=== PATIENT | female | born 2000 | race Two or more races ===

== ENCOUNTER → 2019-03-23 | Outpatient (CLI) | payer OTHER ==
--- NOTE | 2019-03-23 23:49 | MR ---
EXAMINATION TYPE: MR brain wo/w con DATE OF EXAM: 03/23/2019 COMPARISON: None HISTORY: No prior, muscle spasms, R/O MS TECHNIQUE: Multiplanar, multisequence images of the brain and brainstem is performed without and with IV contras t, utilizing 6.5ml mL intravenous Gadavist . FINDINGS: Ventricles and sulci appear normal. There is no mass effect nor midline shift. There is no sign of in tracranial hemorrhage. There is no evidence of cerebral edema. There is a 5 mm focus of increased sig nal in the cho-white matter junction left posterior frontal lobe. There are 2 or 3 tiny 2 mm white matter high signal foci in the right posterior frontal lobe. The brainstem is intact. There is 1 cm mucous retention cyst right and left maxillary sinus. Corpus c allosum appears normal. Sella turcica appears normal. There is no pathologic enhancement. There is no rmal contrast opacification of the venous sinuses. IMPRESSION: There is a single white matter high signal focus left posterior frontal lobe of uncertain significance. There are tiny 2 to 3 mm foci of similar increased signal right posterior frontal lobe white matter. Otherwise negative MR scan of the brain. Small mucus retention cyst anterior right max illary sinus. Small mucous retention cyst anterior left maxillary sinus.
== END | disposition home or self-care (01) ==
LOC: RADMRIMAIN 15:46
PROVIDERS: ATTEND Family Medicine
DX: G35 Multiple sclerosis (principal); H53.9 Unspecified visual disturbance
CPT/HCPCS: 70553; A9585

== ENCOUNTER 2019-05-29 16:57 | Emergency (ER) | payer OTHER ==
[2019-05-29 17:04] VITALS: BP 103/55; PULSE 61; RESP 18; TEMP 97.8
--- NOTE | 2019-05-29 17:44 | ED ---
Extremity Problem HPI - General Chief complaint: Extremity Problem,Nontraumatic Stated complaint: Finger Swelling/Hardness Time Seen by Provider: 05/29/19 17:16 Source: patient Mode of arrival: ambulatory Limitations: no limitations - History of Present Illness Initial comments: 18-year-old female witha past medical history presents emergency department for evaluation of slight redness of the index and middle finger. Patient states that she works at [employer] worse while she states her stroke for close today she noticed redness to the base of the index finger and on the side of the middle finger of the left hand. Patient states that she had never seen this before and was concerned and presented [facility] for evaluation. Patient states is slightly te nder. Patient denies any blistering denies any limitations in range of motion. Patient denies any decrease in strength. Patient denies any direct trauma or falls. Remaining systems negative. Upon arrival patient appears well no signs of acute distress. - Related Data Previous Rx's Medication Instructions Recorded Cephalexin [Keflex] 500 mg PO Q8HR 5 Days #15 cap 05/29/19 Allergies Allergy/AdvReac Type Severity Reaction Status Date / Time No Known Allergies Allergy Verified 05/29/19 17:04 Review of Systems ROS Statement: Those systems with pertinent positive or pertinent negative responses have been documented in the HPI. ROS Other: All systems not noted in ROS Statement are negative. Past Medical History Additional Past Medical History / Comment(s): muscle spasms undiagnosed, seeing neurologist right now History of Any Multi-Drug Resistant Organisms: None Reported Past Surgical History: No Surgical Hx Reported Past Psychological History: ADD/ADHD, Anxiety Smoking Status: Never smoker Past Alcohol Use History: None Reported Past Drug Use History: Marijuana General Exam - General Exam Comments Initial Comments: General: The patient is awake and alert, in no distress, and does not appear acutely ill. Eye: Pupils are equal, round and reactive to light, extra-ocular movements are intact. No nystagmus. There is normal conjunctiva bilaterally. No signs of icterus. Cardiovascular: There is a regular rate and rhythm. No murmur, rub or gallop is appreciated. Respiratory: Lungs are clear to auscultation, respirations are non-labored, breath sounds are equal. No wheezes, stridor, rales, or rhonchi. Gastrointestinal: Soft, non-distended, non-tender abdomen without masses or organomegaly noted. There is no rebound or guarding present. Musculoskeletal: Normal ROM, no tenderness. Strength 5/5. Sensation intact. Radial pulses equal bilaterally 2+. Neurological: A&O x 3. CN II-XII intact grossly, There are no obvious motor or sensory deficits. Coordination appears grossly intact. Speech is normal. Skin: Skin is warm and dry and no rashes. Slight redness noted at the base of the left index finger and slightly on the inner aspect of the middle finger. There is no diffuse tenderness or swelling. No fusiform swelling. No flexed positioning. Patient is able to fully range without pain out of proportion or limitations. Strength intact at the MCP DIP and PIP joints. All 5 digits of the hand. Patient has no evidence of abscess. No evidence of breaks the skin. Psychiatric: Cooperative, appropriate mood & affect, normal judgment. Limitations: no limitations Course Vital Signs 05/29/19 17:01 Temperature 97.8 F Pulse Rate 61 Respiratory 18 Rate Blood Pressure 103/55 O2 Sat by Pulse 100 Oximetry Medical Decision Making - Medical Decision Making 18-year-old female presented to ER for chief complaint of finger redness x few hours. Patient wears gloves at work. Patient denies a specific injuries. There is no obvious breaks in skin there is no evidence of flexor [id number] kanavel signs. Patient may have a developing possible cellulitis however still feel this is unlikely. Most likely feel patient has a local reaction. Patient will be started on Keflex. Return parameters including signs of infection were discussed in length the patient verbalizes understanding. Patient was instructed to rest the area. Remaining review of systems was negative. Patient appeared well discussed case by attending provider Dr. isaacs who is agreeable with care plan and discharge. Disposition Clinical Impression: Finger pain, left, Finger swelling Disposition: HOME SELF-CARE Condition: Good Instructions (If sedation given, give patient instructions): Cellulitis (DC), R.I.C.E. Treatment (ED) Additional Instructions: Please use medication as discussed. Please follow-up with family doctor in the next 2 days. If swelling of the digit increases, redness increases, or inability to range at the finger. Please return to emergency room if the symptoms increase or worsen or for any other concerns. Prescriptions: Cephalexin [Keflex] 500 mg PO Q8HR 5 Days #15 cap Is patient prescribed a controlled substance at d/c from ED?: No Referrals: Dylan Acuña MD [Primary Care Provider] - 1-2 days Time of Disposition: 17:42
== END 2019-05-29 17:50 | disposition home or self-care (01) ==
LOC: EC 16:57
DX: M79.89 Other specified soft tissue disorders (principal); M79.645 Pain in left finger(s)
CPT/HCPCS: 99283

== ENCOUNTER → 2019-11-11 | Outpatient (CLI) | payer BC, OTHER ==
--- NOTE | 2019-11-11 12:30 | USB ---
Reason for exam: clinical finding. History: Patient is nulliparous. Took hormonal contraceptives for 5 years. Indicated problem(s): palpable abnormality and pain in the right breast. Physical Findings: Nurse Summary: 0.3cm nodule in the right breast at 7-8 o'clock (nurse TM). US Breast Limited RT Right limited breast ultrasound including focal area of concern, retroareolar and axilla demonstrates no cystic or solid lesion seen, ductal ectasia. Extremely dense fibroglandular tissue seen throughout. These results were verbally communicated with the patient and result sheet given to the patient on 11/11/19. ASSESSMENT: Negative, BI-RAD 1 RECOMMENDATION: Routine screening mammogram of both breasts at age 38. (or sooner if clinically indicated) Manage patient on a clinical basis.
== END | disposition home or self-care (01) ==
LOC: RADMAMWWP 10:47
PROVIDERS: ATTEND Family Medicine
DX: N63.10 Unspecified lump in the right breast, unspecified quadrant (principal)

== ENCOUNTER → 2021-12-22 | Outpatient (CLI) | payer OTHER ==
--- NOTE | 2021-12-22 14:34 | US ---
EXAMINATION TYPE: US pelvis complete transvag DATE OF EXAM: 12/22/2021 COMPARISON: NONE CLINICAL HISTORY: N93.9 ABNORMAL UTERINE BLEEDING. TECHNIQUE: Transvaginal (TV) and Transabdominal (TA) . Transabdominal sonographic images of the pel vis were acquired. Transvaginal sonographic images were medically necessary to better assess the fol lowing anatomy: ovaries Date of LMP: Patient has been spotting for 2 months EXAM MEASUREMENTS: Uterus: 7.8 x 4.0 x 4.6 cm Endometrial Stripe: 0.3 cm Right Ovary: obscured by extensive peristalsing bowel Left Ovary: obscured by extensive peristalsing bowel 1. Uterus: Anteverted wnl 2. Endometrium: wnl 3. Right Ovary: obscured by extensive peristalsing bowel 4. Left Ovary: obscured by extensive peristalsing bowel 5. Bilateral Adnexa: prominent vasculature 6. Posterior cul-de-sac: minimal amount of free fluid Heterogeneous anteverted uterus. Endometrial stripe is thin. Trace free fluid pelvic cul-de-sac is no nspecific. Neither ovary clearly identified. Scanning the adnexa shows prominent vessels raising concern for pel sangita congestion syndrome. Correlate clinically. IMPRESSION: As above.
== END | disposition home or self-care (01) ==
LOC: RADUSWWP 13:29
PROVIDERS: ATTEND Family Medicine
DX: N93.9 Abnormal uterine and vaginal bleeding, unspecified (principal)
CPT/HCPCS: 76830; 76856

== ENCOUNTER → 2022-06-18 | Outpatient (CLI) | payer OTHER ==
--- NOTE | 2022-06-18 15:47 | US ---
EXAMINATION TYPE: Transabdominal DATE OF EXAM: 06/18/2022 3:32 PM COMPARISON: NONE CLINICAL HISTORY: Z36.89 ENCOUNTER FOR OTHER SPECIFIED SCR. Confirm dates EXAM PERFORMED: Transvaginal (TV) and Transabdominal (TA) EXAM MEASUREMENTS: GESTATIONAL AGE / DATING Physician Established: (7 weeks/4 days) EDC: 01/31/2023 Dates by LMP: (7 weeks/4 days) EDC: 01/31/2023 Dates by First Scan: No previous this is first scan Dates by Current Scan for: ( 6 weeks/0 days) EDC: 02/11/2023 MATERNAL ANATOMY Uterus: 8.0 x 4.4 x 6.0 cm Right Ovary: 3.4 x 2.1 x 2.8 cm Left Ovary: 2.5 x 1.7 x 2.4 cm Post CDS / Adnexa: wnl Presence of free fluid: Scant amount posterior cul de sac Presence of corpus luteal cyst: Right Ovary= 2.0 x 1.6 x 1.7 cm Presence of subchorionic bleed: No GESTATION / SURVEY CRL: 0.3 cm (6 weeks/0 days) MSD: wnl Yolk Sac (normal less than 6mm): 2mm Heart Rate: 70 bpm Rhythm: [place] IUP: Viable IUP Date of LMP: 04/26/2022 IMPRESSION: 1. Single viable intrauterine with ultrasound age of 6 weeks and 0 days by current ultraso und scan. This is discordant with dates by last menstrual period. 2. heart rate of 70 beats per minute suggestive of bradycardia. Attention on follow-up i sheryl.
== END | disposition home or self-care (01) ==
LOC: RADUSWWP 15:00
PROVIDERS: ATTEND Obstetrics & Gynecology
DX: Z36.89 Encounter for other specified antenatal screening (principal); Z3A.01 Less than 8 weeks gestation of pregnancy
CPT/HCPCS: 76801; 76817

== ENCOUNTER → 2022-06-25 | Outpatient (CLI) | payer OTHER ==
--- NOTE | 2022-06-25 19:07 | US ---
EXAMINATION TYPE: Ultrasound OB <= 14 weeks transvaginal DATE OF EXAM: 06/25/2022 2:18 PM COMPARISON: NONE CLINICAL HISTORY: 21-year-old female O36.8390 MATERN CARE FOR ABNLT FETL HRT RATE. EXAM PERFORMED: Transvaginal (TV) and Transabdominal (TA) FINDINGS: EXAM MEASUREMENTS: GESTATIONAL AGE / DATING Physician Established: (8 weeks/5 days) EDC: 623 Dates by LMP: (8 weeks/5 days) EDC: 01-31-23 Dates by First Scan: (7 weeks/0 days) EDC: 02-11-23 Dates by Current Scan for: Unable to date by today's study MATERNAL ANATOMY Uterus: 8.5 x 4.7 x 5.4cm Right Ovary: 2.4 x 1.6 x 1.8cm Left Ovary: 2.4 x 1.2 x 2.1cm Post CDS / Adnexa: wnl Presence of free fluid: no GESTATION / SURVEY CRL: unable to measure by today's ultrasound MSD: 2.5 cm (7 weeks/1 days) Yolk Sac (normal less than 6mm): 2mm Heart Rate: no heart tones bpm Rhythm: Normal IUP: Concerning for Demise Date of LMP: 04-26-22 Beta HcG (if available): Not available at this time Concerning for demise. Preliminary given to Mary Ann at Dr. Quiles's office. IMPRESSION: 1. Gestational sac dating the at 7 weeks 1 day. This is discordant by physician established dates (8 weeks 5 days). 2. No heart rate. The pole appears morphologically disorganized. Findings concerning for demise. Confirm with serial beta hCG follow-up.
== END | disposition home or self-care (01) ==
LOC: RADUSWWP 13:49
PROVIDERS: ATTEND Obstetrics & Gynecology
DX: O36.8310 Maternal care for abnormalities of the fetal heart rate or rhythm, first trimester, not applicable or unspecified (principal); Z3A.01 Less than 8 weeks gestation of pregnancy
CPT/HCPCS: 76801; 76817

== ENCOUNTER → 2022-07-11 | Outpatient (CLI) | payer OTHER ==
[2022-07-11 18:05] LABS: Basophils # (A) 0.05 X 10*3/uL (0.00-0.10); Basophils % (A) 0.4 %; Eosinophils # (A) 0.14 X 10*3/uL (0.04-0.35); Eosinophils % (A) 1.2 %; HCT 38.6 % (37.2-46.3); HGB 12.6 g/dL (12.0-15.0); Immature Grans, Automated 0.3 %; Lymphocytes # (A) 3.13 X 10*3/uL (0.90-5.00); Lymphocytes % (A) 27.5 %; MCH 29.9 pg (27.0-32.0); MCHC 32.6 g/dL (32.0-37.0); MCV 91.5 fL (80.0-97.0); Mean Platelet Volume 9.9 fL (9.5-12.2); Monocytes # (A) 0.61 X 10*3/uL (0.20-1.00); Monocytes % (A) 5.4 %; NRBC Per 100 WBC 0 /100 WBCS (0.0-0.0); Neutrophils # (A) 7.44 X 10*3/uL (1.80-7.70); Neutrophils % (A) 65.2 %; Platelet Count 360 X 10*3/uL (140-440); RBC 4.22 X 10*6/uL (4.10-5.20); RDW 13.4 % (11.5-14.5)
== END | disposition home or self-care (01) ==
LOC: LABPAT 12:08
PROVIDERS: ATTEND Obstetrics & Gynecology
DX: Z01.812 Encounter for preprocedural laboratory examination (principal)
CPT/HCPCS: 85025

== ENCOUNTER 2022-07-12 10:39 | Day surgery (SDC) | payer OTHER ==
[2022-07-11 09:47] VITALS: BMI 25.4
--- NOTE | 2022-07-12 08:47 | P.HPOB ---
History of Present Illness H&P Date: 07/12/22 Chief Complaint: missed 21 year old presents at 7 weeks for suction D&C. She had US showing absent heart tones and her bhcg has started to fall. She has had no bleeding. Review of Systems All systems: negative Constitutional: Denies chills, Denies fever Eyes: denies blurred vision, denies pain Ears, nose, mouth and throat: Denies headache, Denies sore throat Cardiovascular: Denies chest pain, Denies shortness of breath Respiratory: Denies cough Gastrointestinal: Denies abdominal pain, Denies diarrhea, Denies nausea, Denies vomiting Genitourinary: Denies dysuria, Denies hematuria Musculoskeletal: Denies myalgias Integumentary: Denies pruritus, Denies rash Neurological: Denies numbness, Denies weakness Psychiatric: Denies anxiety, Denies depression Endocrine: Denies fatigue, Denies weight change Past Medical History Past Medical History: No Reported History Additional Past Medical History / Comment(s): muscle spasms undiagnosed, seeing neurologist right now History of Any Multi-Drug Resistant Organisms: None Reported Past Surgical History: No Surgical Hx Reported Additional Past Surgical History / Comment(s): colonoscopy/EGD Past Anesthesia/Blood Transfusion Reactions: No Reported Reaction Past Psychological History: ADD/ADHD Smoking Status: Never smoker Past Alcohol Use History: None Reported Past Drug Use History: Marijuana - Past Family History Mother Family Medical History: No Reported History Medications and Allergies Home Medications Medication Instructions Recorded Confirmed Type No Known Home Medications 07/11/22 07/11/22 History Allergies Allergy/AdvReac Type Severity Reaction Status Date / Time No Known Allergies Allergy Verified 07/11/22 09:41 Exam Osteopathic Statement: *. No significant issues noted on an osteopathic structural exam other than those noted in the History and Physical/Consult. HEart: RRR Lungs: CTAB Abdomen: soft, nontender Extremeties: neg faustino's Assessment and Plan (1) Missed Status: Acute Code(s): O02.1 - MISSED SNOMED Code(s): 87144641 Plan: 1. suction D&C
[~2022-07-12 10:39] MED LIST: DEXAMETHASONE SOD PHOSPHATE 4 MG/ML 1 ML VIAL IV ONE; HYDROmorphone 0.5 MG/0.5 ML SYRINGE IVP PRN; LACTATED RINGERS 1,000 ML IV SCH; ONDANSETRON 4 MG/2 ML VIAL IVP ONE; Pre Op ABX Message 1 EACH MISC MISCELLANE ONE
[2022-07-12] MEDS ORDERED: LACTATED RINGERS 1,000 ML IV ONE (11:01)
[2022-07-12] MEDS ORDERED: PROPOFOL 10 MG/ML 20 ML VIAL IV ONE (12:05)
[2022-07-12] MEDS ORDERED: MIDAZOLAM 2 MG/2 ML VIAL ONE (12:05)
[2022-07-12] MEDS ORDERED: fentaNYL (PF) 50 MCG/ML 2 ML AMP ONE (12:05)
[2022-07-12] MEDS ORDERED: LIDOCAINE 2% INJ 20 MG/ML (2 ML VIAL) ONE (12:05)
[2022-07-12 12:46] VITALS: TEMP 97.4
--- NOTE | 2022-07-12 12:48 | P.OP ---
Date of Procedure: 07/12/22 Preoperative Diagnosis: 1. missed Postoperative Diagnosis: 1.missed Procedure(s) Performed: Suction D&C Anesthesia: MAC Surgeon: Sury Quiles Estimated Blood Loss (ml): 100 IV fluids (ml): 300 Urine output (ml): 30 Pathology: other (Products of conception) Condition: stable Disposition: PACU Description of Procedure: Patient taken the operating room where general anesthesia was obtained without difficulty. She is prepped and draped in normal sterile fashion dorsal lithotomy position, legs placed in the candycane stirrups. Bladder drained of all urine. Weighted speculum place in vagina the anterior lip of the cervix was grasped with single-tooth tenaculum. The cervix was dilated to #10 Hegar dilator. The #10 curved suction curet was introduced into the uterus and passed several times to remove all tissue and blood. Sharp curet was gently used to ensure all tissue had been removed. Suction curet was passed a few more times. Hemostasis was achieved. Patient tolerated procedure well, sponge and instrument counts correct 2. She was taken to recovery in stable condition.
[2022-07-12] MEDS ORDERED: KETOROLAC 15 MG/ML 1 ML VIAL IVP ONE (12:52)
[2022-07-12 13:58] VITALS: RESP 18
[2022-07-12 14:28] VITALS: BP 101/60; PULSE 61
== END 2022-07-12 14:38 | disposition home or self-care (01) ==
LOC: OR 10:39
PROVIDERS: ATTEND Obstetrics & Gynecology
DX: O02.1 Missed abortion (principal); M62.838 Other muscle spasm; F90.9 Attention-deficit hyperactivity disorder, unspecified type; F12.90 Cannabis use, unspecified, uncomplicated
CPT/HCPCS: 86900; 86901; 88305; 86850; 59820; J2250; J1100; J2405; J3010; J1885; J2704; J1170; J2001

== ENCOUNTER 2022-08-26 08:36 | Emergency (ER) | payer OTHER ==
[2022-08-26] MEDS ORDERED: DIPH,PERTUS(ACELL)TETVAC-LF 0.5 ML VIAL IM ONE (08:53)
[2022-08-26] MEDS ORDERED: HYDROmorphone 0.5 MG/0.5 ML SYRINGE IVP STA (08:53)
[2022-08-26] MEDS ORDERED: KETOROLAC 15 MG/ML 1 ML VIAL IVP STA (08:53)
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
[2022-08-26 09:21] LABS: Basophils # (A) 0.1 k/uL (0-0.2); Basophils % (A) 1 %; Eosinophils # (A) 0.1 k/uL (0-0.7); Eosinophils % (A) 1 %; HCT 41.8 % (34.0-46.0); HGB 14.3 gm/dL (11.4-16.0); Lymphocytes # (A) 3.4 k/uL (1.0-4.8); Lymphocytes % (A) 31 %; MCH 31.6 pg (25.0-35.0); MCHC 34.3 g/dL (31.0-37.0); MCV 92.3 fL (80.0-100.0); Mean Platelet Volume 8.4; Monocytes # (A) 0.5 k/uL (0-1.0); Monocytes % (A) 5 %; Neutrophils # (A) 6.7 k/uL (1.3-7.7); Neutrophils % (A) 61 %; Platelet Count 348 k/uL (150-450); RBC 4.53 m/uL (3.80-5.40); RDW 13.1 % (11.5-15.5)
[2022-08-26 09:29] LABS: INR 1.1 (<1.2); Partial Thromboplastin Time 25.7 sec (22.0-30.0); Prothrombin Time 11.3 sec (9.0-12.0)
[2022-08-26 09:31] LABS: ALT 20 U/L (4-34); AST 25 U/L (14-36); African American GFR (CKD) >90 (>60 ml/min/1.73 sqM); Albumin 4.8 g/dL (3.5-5.0); Alkaline Phosphatase 77 U/L (38-126); Anion Gap 16 mmol/L; Blood Urea Nitrogen 6 mg/dL (7-17); Calcium 8.9 mg/dL (8.4-10.2); Carbon Dioxide 16 mmol/L (22-30); Chloride 109 mmol/L (98-107); Glucose 96 mg/dL (74-99); Non-African American GFR(CKD) >90 (>60 ml/min/1.73 sqM); Potassium 3.9 mmol/L (3.5-5.1); Sodium 141 mmol/L (137-145); Total Bilirubin 0.4 mg/dL (0.2-1.3); Total Protein 7.8 g/dL (6.3-8.2)
[2022-08-26 09:34] LABS: Alcohol 117 mg/dL
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
[2022-08-26] MEDS ORDERED: LIDOCAINE/EPINEPHR/TETRACAINE 5 ML BOTTLE TOPICAL ONE (10:59)
[2022-08-26] MEDS ORDERED: LIDOCAINE 1% INJ 10MG/ML (30 ML VIAL-PF) SQ ONE (11:18)
--- NOTE | 2022-08-26 12:52 | XR ---
EXAMINATION TYPE: XR elbow limited LT DATE OF EXAM: 08/26/2022 12:35 PM INDICATION: Patient age:Female; 21 years old; Reason for study: Foreign body; . COMPARISON: 08/26/2022 earlier TECHNIQUE: The left elbow was examined in AP, lateral, and oblique projections. FINDINGS: From body has been removed. No evidence of any acute osseous pathology, joint dislocation, or soft tissue swelling is noted. No evidence of joint effusion is present. IMPRESSION: Interval removal of the radiopaque foreign body. No evidence of acute fracture.
[2022-08-26 13:08] LABS: Amphetamine Screen,Urine Detected (NotDetected); Barbiturate Screen,Urine Not Detected (NotDetected); Benzodiazepines Screen,Urine Not Detected (NotDetected); Cocaine Screen,Urine Not Detected (NotDetected); Methadone Screen, Urine Not Detected (NotDetected); Opiate Screen,Urine Detected (NotDetected); Oxycodone Screen, Urine Not Detected (NotDetected); Phencyclidine Screen,Urine Not Detected (NotDetected); Tricyclic Antidepressant,Urine Not Detected (NotDetected); Urn Cannabinoid Scrn Detected (NotDetected)
[2022-08-26 17:25] VITALS: BP 111/81; PULSE 87; RESP 18; TEMP 98.1
== END 2022-08-26 14:00 | disposition home or self-care (01) ==
LOC: EC 08:36
DX: S02.2XXA Fracture of nasal bones, initial encounter for closed fracture (principal); S46.912A Strain of unspecified muscle, fascia and tendon at shoulder and upper arm level, left arm, initial encounter; S50.312A Abrasion of left elbow, initial encounter; F10.929 Alcohol use, unspecified with intoxication, unspecified; F12.90 Cannabis use, unspecified, uncomplicated; Z23 Encounter for immunization; V49.9XXA Car occupant (driver) (passenger) injured in unspecified traffic accident, initial encounter; Y92.410 Unspecified street and highway as the place of occurrence of the external cause
CPT/HCPCS: 36415; 93005; 80053; 84484; 85025; 85610; 85730; 84703; 80306; 70160; 72170; 73030; 73070; 73080; 73130; 71045; 72125; 70450; 90715; 12002; 99285; 96365; 90471; 96375 ×2; G0480; J0690; J2001; J1885; J1170; 80320